=== PATIENT | female | born 1960 | race Caucasian/White ===

== ENCOUNTER 2018-04-16 13:50 | Outpatient (CLI) | payer OTHER, SELFPAY ==
--- NOTE | 2018-04-16 14:19 | DI.RAD_ITS ---
SYMPTOMS/DIAGNOSIS: DYSPNEA, R06.00, INTERMITTENT ASTHMA, J45.20 PA AND LATERAL CHEST: Comparison is made with 8Oct10. The heart size is normal. The aorta is mildly tortuous. The infiltrate or effusion is seen. There are no visible emphysematous or fibrotic changes. There is no peribronchial thickening or hyperinflation. IMPRESSION: Negative chest x-ray.
[2018-04-16 15:17] LABS: D-Dimer 366 ng/mlFEU (<500)
== END 2018-04-16 14:10 ==
PROVIDERS: PCP Internal Medicine; Visit Provider Nurse Practitioner
DX: R06.00 Dyspnea, unspecified (principal); J45.20 Mild intermittent asthma, uncomplicated
CPT/HCPCS: 36415; 71046; 85379

== ENCOUNTER 2018-08-06 14:32 | Outpatient (REF) | payer OTHER, SELFPAY ==
[2018-08-06 22:39] LABS: ALT 27 U/L (12-78); AST 20 U/L (15-37); Albumin 3.9 g/dL (3.4-5.0); Alkaline Phosphatase 121 U/L (46-116); Anion Gap 9.6 mmol/L (3-11); BUN 17 mg/dL (7-18); Bilirubin, Total 0.9 mg/dL (0.2-1.0); CO2 28.4 mmol/L (21.0-32.0); CREATININE 0.62 mg/dL (0.55-1.02); Calcium 9.1 mg/dL (8.5-10.1); Chloride 101 mmol/L (98-107); Cholesterol 155 mg/dL (50-200); Glucose 85 mg/dL (70-100); HDL Cholesterol 56 mg/dL (40-60); LDL CHOLESTEROL 94 mg/dL (<100); Sodium 139 mmol/L (136-145); Total Protein 6.6 g/dL (6.4-8.2); Triglyceride 32 mg/dL (30-150)
== END 2018-08-06 14:52 ==
LOC: NCHCN 14:32
PROVIDERS: PCP Internal Medicine; Visit Provider Internal Medicine
DX: Z00.00 Encounter for general adult medical examination without abnormal findings (principal); J45.30 Mild persistent asthma, uncomplicated; F41.8 Other specified anxiety disorders; F10.21 Alcohol dependence, in remission
CPT/HCPCS: 80053; 80061; 83721

== ENCOUNTER 2019-04-30 10:33 | Outpatient (CLI) | payer OTHER, SELFPAY ==
--- NOTE | 2019-04-30 10:44 | DI.RAD_ITS ---
EXAM: XR ELBOW RT COMPLETE INDICATION: RT ELBOW PAIN, M25.521. COMPARISON: No exams were available for comparison TECHNIQUE: 2D digital imaging was performed. FINDINGS: The bones are normally mineralized. No lytic or sclerotic lesions are seen. No acute fracture or di slocation is present. There is a well-corticated osseous density adjacent to the olecranon. This ap pears chronic. The soft tissues are unremarkable. IMPRESSION: No acute abnormality. If there is concern for internal derangement, an MRI should be considered for further evaluation.
== END 2019-04-30 10:53 ==
PROVIDERS: PCP Internal Medicine; Visit Provider Internal Medicine
DX: M25.521 Pain in right elbow (principal)
CPT/HCPCS: 73080

== ENCOUNTER 2020-10-30 15:40 | Outpatient (REF) | payer OTHER, SELFPAY ==
[2020-10-30 21:43] LABS: HCT 42.9 % (36.0-46.0); HGB 13.9 g/dL (11.2-15.7); MCH 29.4 pg (27.0-33.0); MCHC 32.4 % (32.0-36.0); MCV 90.7 fL (80-95); MPV 9.6 fL (8.0-11.0); Platelet Count 226 10^3/uL (130-400); RBC 4.73 10^6/uL (3.93-5.22); RDW 11.3 % (11.7-14.6); RDW-SD 38.2 fL; WBC 6.28 10^3/uL (4.4-10.8)
[2020-10-30 22:42] LABS: ALT 37 U/L (14-59); AST 26 U/L (15-37); Albumin 3.8 g/dL (3.4-5.0); Alkaline Phosphatase 121 U/L (46-116); Anion Gap 5.9 mmol/L (3-11); BUN 13 mg/dL (7-18); Bilirubin, Total 0.5 mg/dL (0.2-1.0); CO2 29.1 mmol/L (21.0-32.0); CREATININE 0.5 mg/dL (0.55-1.02); Calcium 9.3 mg/dL (8.5-10.1); Chloride 102 mmol/L (98-107); Cholesterol 178 mg/dL (<200); Glucose 68 mg/dL (74-106); HDL Cholesterol 65 mg/dL (40-60); Potassium 4.2 mmol/L (3.5-5.1); Sodium 137 mmol/L (136-145); Total Protein 6.6 g/dL (6.4-8.2); Triglyceride 18 mg/dL (<150); Vitamin B12 1384 pg/mL (193-986)
[2020-10-30 22:56] LABS: LDL CHOLESTEROL 100 mg/dL (<100)
[2020-11-02 01:42] LABS: Vitamin D 25 Total 58.7 ng/mL (30-100)
== END 2020-10-30 15:41 | disposition home or self-care (01) ==
LOC: NCHCN 15:40
PROVIDERS: PCP Internal Medicine; Visit Provider Family Medicine
DX: Z13.220 Encounter for screening for lipoid disorders (principal); Z12.31 Encounter for screening mammogram for malignant neoplasm of breast; E55.9 Vitamin D deficiency, unspecified; R20.2 Paresthesia of skin
CPT/HCPCS: 80053; 80061; 82306; 83721; 85027; 82607

== ENCOUNTER 2021-10-25 14:37 | Outpatient (REF) | payer OTHER, SELFPAY ==
[2021-10-25 15:03] LABS: ALT 41 U/L (14-59); AST 26 U/L (15-37); Albumin 3.7 g/dL (3.4-5.0); Alkaline Phosphatase 102 U/L (46-116); Anion Gap 4.3 mmol/L (3-11); BUN 15 mg/dL (7-18); Bilirubin, Total 0.7 mg/dL (0.2-1.0); CO2 30.7 mmol/L (21.0-32.0); CREATININE 0.6 mg/dL (0.55-1.02); Calcium 8.8 mg/dL (8.5-10.1); Chloride 99 mmol/L (98-107); Glucose 89 mg/dL (74-106); Potassium 4.3 mmol/L (3.5-5.1); Sodium 134 mmol/L (136-145); Total Protein 6.6 g/dL (6.4-8.2)
[2021-10-25 23:25] LABS: Calculated LDL 52 mg/dL (<100); Cholesterol 128 mg/dL (<200); HDL Cholesterol 69 mg/dL (40-60); Triglyceride 36 mg/dL (<150)
== END 2021-10-25 14:38 | disposition home or self-care (01) ==
LOC: NCHCN 14:37
PROVIDERS: PCP Internal Medicine; Visit Provider Family Medicine
DX: Z00.00 Encounter for general adult medical examination without abnormal findings (principal); E55.9 Vitamin D deficiency, unspecified; Z13.220 Encounter for screening for lipoid disorders; Z13.228 Encounter for screening for other metabolic disorders
CPT/HCPCS: 80053; 80061

== ENCOUNTER 2021-11-01 18:32 | Outpatient (REF) | payer OTHER, SELFPAY ==
--- NOTE | 2021-11-01 14:00 | PAPFT_PTH ---
PATIENT: Suzy Jackson LOC: [facility] U#:[id number] AGE/SX: 61/F ROOM: RE11/01/[address]: Negra Lucas : 1960 BED: DIS: 11/01/2021 SPEC #: [id number] RECD: 11/01/21 18:34 STATUS: XAVIER REQ #: [id number] YUDI: 11/01/21 14:[address]: Negra Lucas DEPT: [facility] Cytology RECD BY: Graciela Zacarias ENTERED: 11/01/21 18:34 SP TYPE: PAPFT OTHR DR: Chito Lopez Tissues: 1 - CX/ENDOCX FOR PAP SMEARS Procedures: PAP THIN PREP/[facility] Screening HPV DNA PROBE Comments: [id number]
== END 2021-11-01 18:33 | disposition home or self-care (01) ==
LOC: LBN 18:32
PROVIDERS: PCP Internal Medicine; Visit Provider Nurse Practitioner Family
DX: Z00.00 Encounter for general adult medical examination without abnormal findings (principal); Z12.4 Encounter for screening for malignant neoplasm of cervix; Z11.51 Encounter for screening for human papillomavirus (HPV)
CPT/HCPCS: 88142; 87624

== ENCOUNTER 2023-05-25 10:55 | Outpatient (REF) | payer OTHER, SELFPAY ==
[2023-05-25 14:06] LABS: HCT 45.8 % (36.0-46.0); HGB 14.6 g/dL (11.2-15.7); MCH 29.4 pg (27.0-33.0); MCHC 31.9 % (32.0-36.0); MCV 92 fL (80-95); MPV 9.5 fL (8.0-11.0); Platelet Count 188 10^3/uL (130-400); RBC 4.96 10^6/uL (3.93-5.22); RDW 11.7 % (11.7-14.6); RDW-SD 39.8 fL
[2023-05-25 14:15] LABS: ALT 49 U/L (14-59); AST 20 U/L (15-37); Albumin 3.7 g/dL (3.4-5.0); Alkaline Phosphatase 121 U/L (46-116); Anion Gap 1.7 mmol/L (3-11); BUN 11 mg/dL (7-18); Bilirubin, Total 0.6 mg/dL (0.2-1.0); CO2 33.3 mmol/L (21.0-32.0); CREATININE 0.6 mg/dL (0.55-1.02); Calculated LDL 54 mg/dL (<100); Chloride 103 mmol/L (98-107); Cholesterol 140 mg/dL (<200); Estimated GFR 102.06 (mL/min/1.73m2); Glucose 81 mg/dL (74-106); HDL Cholesterol 81 mg/dL (40-60); Potassium 4.2 mmol/L (3.5-5.1); Sodium 138 mmol/L (136-145); Total Protein 6.5 g/dL (6.4-8.2); Triglyceride 26 mg/dL (<150)
[2023-05-25 14:40] LABS: Vitamin D 25 Total 41.1 ng/mL (30-100)
== END 2023-05-25 10:56 | disposition home or self-care (01) ==
LOC: NCHCN 10:55
PROVIDERS: PCP Internal Medicine; Visit Provider Family Medicine
DX: Z00.00 Encounter for general adult medical examination without abnormal findings (principal); E78.5 Hyperlipidemia, unspecified; E55.9 Vitamin D deficiency, unspecified
CPT/HCPCS: 80053; 80061; 82306; 85027